=== PATIENT | male | born 2000 | race Hispanic/Latino ===

== ENCOUNTER 2024-12-15 10:26 | Emergency (ER) | payer SELFPAY ==
[2024-12-15 10:39] VITALS: BP 116/55; PULSE 97; RESP 18; TEMP 36.7; O2SAT 99
[2024-12-15 10:45] VITALS: BP 121/62; PULSE 73; RESP 14; TEMP 36.6; O2SAT 97
--- NOTE | 2024-12-15 11:12 | ED_ITS ---
HPI - Wound/Laceration General Chief Complaint: Wound/Laceration Stated Complaint: chainsaw vs leg Time Seen by Provider: 12/15/24 10:32 History of Present Illness HPI narrative: Patient is a 24-year-old male who presents ER with laceration to left anterior thigh. He was getting logs with a chain saw when 1 began fall he tried to stop it with his leg and struck his other leg with a chainsaw. No numbness or tingling. Bleeding controlled. Normal strength. Unknown last tetanus shot. Related Data Allergies Allergy/AdvReac Type Severity Reaction Status Date / Time No Known Allergies Allergy Verified 12/15/24 10:48 Review of Systems Constitutional: Constitutional: Reports no additional constitutional complaints Musculoskeletal: Musculoskeletal: Reports no additional musculoskeletal complaints Integumentary/Breasts: Skin/Breast: Reports system reviewed and no additional complaints, except as docu Neurologic: Reports system reviewed and no additional complaints, except as d ocumented [facility] Past Medical History Medical History (Updated 12/15/24 @ 11:17 by Adrian Robison MD) History of pneumothorax Surgical History Surgical History (Updated 12/15/24 @ 11:14 by Adrian Robison MD) No pertinent past surgical history Exam Narrative: GENERAL: Well-appearing, well-nourished, and in no acute distress. HEAD: Normocephalic, atraumatic. HEART: Regular rate and rhythm. Normal peripheral pulses. EXTREMITIES: Normal range of motion. No edema. SKIN: Warm, dry. 6 cm laceration left anterior thigh that goes into the fatty tissue, no muscle exposure in a bloodless field. NEURO: No focal deficits. Alert and oriented x3. PSYCH: Normal mood and affect. Course Course Emergency Course: Wound repaired. Discharge home with antibiotics to prevent infection given the dirtiness of the wound with organic matter. Vital Signs Vital signs: Vital Signs Temperature 98.1 F 12/15/24 10:39 Pulse Rate 97 12/15/24 10:39 Respiratory Rate 18 12/15/24 10:39 Blood Pressure 116/55 L 12/15/24 10:39 Pulse Oximetry 99 12/15/24 10:39 Oxygen Delivery Room Air 12/15/24 10:39 Temperature 97.8 F 12/15/24 10:45 Pulse Rate 73 12/15/24 10:45 Respiratory Rate 14 12/15/24 10:45 Blood Pressure 121/62 12/15/24 10:45 Pulse Oximetry 97 12/15/24 10:45 Oxygen Delivery Room Air 12/15/24 10:39 Procedures Laceration Laceration 1: Date: 12/15/24 Time: 11:10 Site: lower extremity Side (If applicable): left Size (cm): 6 Description: linear and contaminated Depth: simple, single layer (And the subcutaneous fat) Local Anesthetic: lidocaine 1% and with epi Amount of anesthesia used (mL): 5 Pre-repair: wound explored, irrigated extensively, minor debridement and deep structures intact ====== Skin Level ====== Skin layer closed with: nylon Size (cm): 3-0 Number of sutures: 5 Technique: horizontal mattress ====== Subcutaneous Layer ====== ====== Muscle Layer ====== ====== Tendon Layer ====== Discharge Plan Discharge Clinical Impression: Laceration Patient Disposition: Home Condition: Stable Instructions: Laceration (ED) Additional Instructions: Remove your sutures in 14 days (December 29). Return ER if your wound is draining pus, you have fever 100.4? F, or you have additional concerns. Patient Language: Hungarian Prescriptions: New amoxicillin-pot clavulanate 875-125 mg tablet 1 tablet PO Q12H Qty: 10 0RF Follow-up/Referrals: PHYSICIAN NOT ON STAFF,NONSTAFF [Non-Staff] Mao Elizabeth MD [Physician, Family Practice] - 2 Weeks
[2024-12-15] MEDS: TETANUS,DIPHTHERIA,AC PERTUSSIS ADULT (0.5 ML) BOOSTRIX IM (11:13)
[2024-12-15 11:41] VITALS: BP 115/79; PULSE 69; RESP 17; O2SAT 99
== END 2024-12-15 11:42 | disposition home or self-care (01) ==
LOC: ANHED 11:17
PROVIDERS: Emergency Provider Emergency Medicine; PCP Physician Assistant Medical
DX: S71.112A Laceration without foreign body, left thigh, initial encounter (principal); Z23 Encounter for immunization; W29.3XXA Contact with powered garden and outdoor hand tools and machinery, initial encounter
CPT/HCPCS: 12002; 90471; 90715; 99283; J2004